=== PATIENT | male | born 1960 | race Caucasian/White ===

== ENCOUNTER 2022-05-23 13:21 | Emergency (ER) | payer BC, SELFPAY ==
[2022-05-23 13:34] VITALS: BP 154/88; PULSE 73; RESP 16; TEMP 36.3; O2SAT 98
--- NOTE | 2022-05-23 13:36 | ED.URI ---
HPI - URI/Sore Throat General Chief Complaint: Upper Respiratory Infection Stated Complaint: hurts to swallow Source: patient Mode of arrival: ambulatory Limitations: no limitations History of Present Illness HPI Narrative: This is a 61-year-old male that comes in complaining of a sore throat according to patient he says the sore throat he just noticed this morning. Patient states that it feels like something is swollen in the middle of his throat and it hurts for him to swallow note denies any difficulty breathing denies any fever denies any shortness of breath. Patient states he has taken allergy medication Related Data Allergies Allergy/AdvReac Type Severity Reaction Status Date / Time No Known Allergies Allergy Verified 05/23/22 13:35 Review of Systems Review of Systems: Sore throat All systems reviewed & are unremarkable except as noted in HPI and below Exam Narrative: GENERAL:Well-appearing, well-nourished, and in no acute distress. HEAD:Normocephalic, atraumatic. EYES: PERRLA and EOMI. ENT: Nares clear, moderate rhinorrhea pharyngeal erythema uvula swollen with exudate surrounding, bilateral tonsils swollen with exudate noted 0 mucous membranes moist. CHEST: Clear to auscultation. No respiratory distress. HEART: Regular rate and rhythm.. Normal peripheral pulses. ABDOMEN: Soft, nontender, nondistended, normal active bowel sounds. EXTREMITIES: Normal range of motion. No edema. SKIN: Warm, dry, no rash. NEURO: No focal deficits. Alert and oriented x3. Course Course Emergency Course: Strep culture sent Level of Care: Express Care Visit Vital Signs Vital signs: Vital Signs Temperature 97.3 F L 05/23/22 13:34 Pulse Rate 73 05/23/22 13:34 Respiratory Rate 16 05/23/22 13:34 Blood Pressure 154/88 H 05/23/22 13:34 Pulse Oximetry 98 05/23/22 13:34 Oxygen Delivery Room Air 05/23/22 13:34 Temperature 97.3 F L 05/23/22 13:34 Pulse Rate 73 05/23/22 13:34 Respiratory Rate 16 05/23/22 13:34 Blood Pressure 154/88 H 05/23/22 13:34 Pulse Oximetry 98 05/23/22 13:34 Oxygen Delivery Room Air 05/23/22 13:34 MDM - URI/Sore Throat Lab Data Labs: Strep Screen Presumptive Negative *(Reference Range: Negative)* Discharge Plan Discharge Clinical Impression: Pharyngitis, Tonsillitis with exudate Patient Disposition: Home, Self-Care Condition: Stable Instructions: Antibiotic Form, Pharyngitis (ED), Tonsillitis (ED) Additional Instructions: your strep test today was negative. A throat culture will be sent to the laboratory for further testing. IF the test is positive, you will receive a phone call within 48 hours and an appropriate antibiotic will be initiated at that time. You will not receive a phone call if the test is negative. Until the throat culture proves otherwise, you should proceed with treating this is as a viral pharyngitis. Salt water gargles may alleviate some of your throat discomfort. Take Tylenol and/or ibuprofen per the package instructions for pain/fever. Go to the ER if your symptoms become worse of if ANY new symptoms develop Patient instructed to take 50 mg of Benadryl when he gets home Prescriptions: New amoxicillin 500 mg tablet 500 mg PO Q12H Qty: 14 0RF prednisone 10 mg tablet 10 mg PO BID 2 Days Qty: 6 0RF Rx Instructions: 20 mg bid today, tomorrow 10 bid x 1 day Follow-up/Referrals: Kenyon,Anderson Quiroga MD [Primary Care Provider] - Stand Alone Forms: Work/School Release IP Time of Disposition: 14:19
== END 2022-05-23 14:20 | disposition home or self-care (01) ==
PROVIDERS: Emergency Provider Nurse Practitioner Family; PCP Family Medicine
DX: J02.9 Acute pharyngitis, unspecified (principal)
CPT/HCPCS: 87081; 87880; 99203; G0463